=== PATIENT | female | born 2000 | race Caucasian/White ===

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

== ENCOUNTER 2023-04-03 00:08 | Inpatient (IN) | payer BC, OTHER ==
[~2023-04-03 00:08] MED LIST changes: +COLESTIPOL HCL1 GM PO; +SUCRALFATE1 GM PO
[2023-04-03 00:45] LABS: HEMATOCRIT 31.1 % (35.0-50.0); HEMOGLOBIN 10.6 g/dL (12.0-18.0); MCH 30.3 (27-36); MCV 89.1 fl (81-99); RBC 3.49 M/ul (4.3-5.7); RDW 13.2 (10.5-15.0)
[2023-04-03 01:05] LABS: AMPHETAMINES, URINE NEGATIVE (NEGATIVE); BARBITURATES, URINE NEGATIVE (NEGATIVE); BENZODIAZEPINE, URINE NEGATIVE (NEGATIVE); BUPRENORPHINE, URINE NEGATIVE (NEGATIVE); CANNABINOID, URINE NEGATIVE (NEGATIVE); COCAINE, URINE NEGATIVE (NEGATIVE); ECSTASY, URINE NEGATIVE (NEGATIVE); FENTANYL, URINE NEGATIVE (NEGATIVE); METHADONE, URINE NEGATIVE (NEGATIVE); OPIATES, URINE NEGATIVE (NEGATIVE); OXYCODONE, URINE NEGATIVE (NEGATIVE); PHENCYCLIDINE, URINE NEGATIVE (NEGATIVE)
[2023-04-03 01:21] LABS: INFLUENZA B NAA NEGATIVE (NEGATIVE); RESPIRATORY SYNCYTIAL VIR NAA NEGATIVE (NEGATIVE)
[2023-04-03 01:24] LABS: ABO AB; ANTIBODY SCREEN NEGATIVE; RH POSITIVE
[2023-04-03 02:25] VITALS: BP 125/58
--- NOTE | 2023-04-03 10:42 | PR ---
[facility] [address] [facility] [place], [place] [address] Signed Progress Notes IP Datetime Report Generated by CPN: 04/03/2023 10:42 PROGRESS NOTES: [id number] Impression: Normal Progression of Labor Procedures: Artificial ROM; Sterile Vag Exam Plan: Continue Present Management VITAL SIGNS: [id number] Vital Signs: Reviewed; Within Normal Limits EXAM: [id number] Dilatation: 2.0 Effacement: 60 Station: -2 Contractions: q 1 to 3 min MEMBRANES: [id number] ROM Note: Amnisure test to lab Comments: Progressing but still comfortable. Will continue. FETUS A: [id number] FHR Baseline: 145 Variability: Moderate 6-25bpm Accelerations: 15X15 Decelerations: Variable FHR Category: Category II Presentation: Vertex Comments on Fetus A: accel with exam FETUS B: [id number] Signing Physician: Reema Jain MD Copies: ~ *Electronically Signed* 04/03/23 1042 REEMA JAIN MD PATIENT NAME: BERNABE MANZO PROGRESS NOTE DATE OF : [birth year] PHYSICIAN: REEMA JAIN MD RPT #: [id number] REPORT IS CONFIDENTIAL AND NOT TO BE RELEASED WITHOUT AUTHORIZATION
--- NOTE | 2023-04-03 18:43 | PR ---
[facility] [address] [place], [place] [address] Signed Progress Notes IP Datetime Report Generated by CPN: 04/03/2023 18:42 PROGRESS NOTES: [id number] Impression: Normal Progression of Labor; Non-reassuring Heart Rate Procedures: Sterile Vag Exam Plan: Tocolysis VITAL SIGNS: [id number] Vital Signs: Reviewed; Within Normal Limits EXAM: [id number] Dilatation: 8.0 Effacement: 80 Station: -2 Contractions: q 2 to 3 min MEMBRANES: [id number] ROM Note: Amnisure test to lab Comments: LE--Good progress but status not reassuring with the decrease in variability and recurrent decels. status improved with IV ephedrine as BP was borderline and also rec'd subq terb. Currently, status reassuring. Will continue close observation. FETUS A: [id number] FHR Baseline: 145 Variability: Minimal - >Undetectable to <=5bpm Accelerations: 15X15 Decelerations: Late; Variable; Prolonged FHR Category: Category II Presentation: Vertex Comments on Fetus A: accel with exam FETUS B: [id number] Signing Physician: Reema Jain MD Copies: ~ *Electronically Signed* 04/03/23 184 REEMA JAIN MD PATIENT NAME: BERNABE MANZO PROGRESS NOTE DATE OF : [birth year] PHYSICIAN: REEMA JAIN MD RPT #: [id number] REPORT IS CONFIDENTIAL AND NOT TO BE RELEASED WITHOUT AUTHORIZATION
--- NOTE | 2023-04-03 20:29 | PR ---
[facility] [address] [facility] [place] [address] Signed Progress Notes IP Datetime Report Generated by CPKailey: 04/03/2023 20:29 PROGRESS NOTES: [id number] Impression: Normal Progression of Labor; Reassuring Heart Rate Procedures: Sterile Vag Exam Plan: Continue Present Management VITAL SIGNS: [id number] Vital Signs: Reviewed; Within Normal Limits EXAM: [id number] Dilatation: 9.0 Effacement: 80 Station: -1 Contractions: q 4 to 5 min MEMBRANES: [id number] ROM Note: Amnisure test to lab Comments: status has been very good since the episode of decels. Making progress. Will continue. FETUS A: [id number] FHR Baseline: 145 Variability: Moderate 6-25bpm Accelerations: 15X15 Decelerations: None FHR Category: Category I Presentation: Vertex Comments on Fetus A: accel with exam FETUS B: [id number] Signing Physician: Reema Jain MD Copies: ~ *Electronically Signed* 04/03/232028 REEMA JAIN MD PATIENT NAME: BERNABE MANZO PROGRESS NOTE DATE OF : [birth year] PHYSICIAN: REEMA JAIN MD RPT #: [id number] REPORT IS CONFIDENTIAL AND NOT TO BE RELEASED WITHOUT AUTHORIZATION
[2023-04-04 05:27] LABS: HEMATOCRIT 31.1 % (35.0-50.0); HEMOGLOBIN 10.6 g/dL (12.0-18.0); MCH 30.2 (27-36); MCHC 33.9 g/dl (30-36); PLATELET COUNT 246 K/uL (140-440); RDW 13.4 (10.5-15.0)
[2023-04-04 05:39] LABS: BANDS, MANUAL DIFF 25; LYMPHOCYTES, MANUAL DIFF 11; MONOCYTES, MANUAL DIFF 1; NEUTROPHILS, MANUAL DIFF 63
--- NOTE | 2023-04-04 08:19 | PR ---
[facility] [place] [facility] [address] [place] [address] Signed PP Progress Notes Datetime Report Generated by CPN: 04/04/2023 08:19 SUBJECTIVE: [id number] Pain: Within Normal Limits Vital Signs: [id number] Vital Signs: Reviewed; Within Normal Limits Cardiovascular: Not Done Respiratory: Not Done Abdomen/Uterus: Abnormal Lochia: Normal Vulva/Perineum: Not Done Breasts: Not Done CVA Tenderness: Not Done Extremities: Normal Incision: Not Applicable Progress: Not Applicable Exam Comments: Fundus firm, NT @ U-1. H/H 10..1, WBC 23.5 S63/B25, plat 246k IMPRESSION/PLAN/PROCEDURES: [id number] Impression: Normal Progression Other Impression: elevated WBC with lg # bands Progress Notes: Doing well. Her WBCs are quite high which is common with labor but she does have a large # of bands. There are no other signs of infx currently but will repeat lab in am. Signing Physician: Reema Jain MD Copies: ~ *Electronically Signed* 04/04/23 08 REEAM JAIN MD PATIENT NAME: ALDRICH COLLIER,BERNABE EDUARDO PROGRESS NOTE DATE OF : [birth year] PHYSICIAN: REEMA JAIN MD RPT #: [id number] REPORT IS CONFIDENTIAL AND NOT TO BE RELEASED WITHOUT AUTHORIZATION
--- NOTE | 2023-04-04 11:48 | NUR ---
EXERCISED MINISTRY OF [facility] FAM[facility] TALKED OF LIFE EXPERIENCES. ALL DENIED NEEDS. CONSENTED TO PRAYER. PRAYED FOR GOOD BEGINNINGS AND ONGOING BLESSING.
[2023-04-05 05:34] LABS: BASOPHILS 0.5 % (0-2); EOSINOPHILS 1.4 % (0-6); HEMATOCRIT 31.4 % (35.0-50.0); HEMOGLOBIN 10.4 g/dL (12.0-18.0); LYMPHOCYTES 19.6 % (24-44); MCH 30.2 (27-36); MCHC 33.1 g/dl (30-36); MCV 91.2 fl (81-99); MONOCYTES 4.7 % (0-12); NEUTROPHILS 73.8 % (39-80); PLATELET COUNT 243 K/uL (140-440); RBC 3.45 M/ul (4.3-5.7); RDW 13.8 (10.5-15.0)
--- NOTE | 2023-04-05 07:40 | PR ---
[facility] [address] [facility] [place] [address] Signed PP Progress Notes Datetime Report Generated by CPN: 04/05/2023 07:39 SUBJECTIVE: [id number] Pain: Within Normal Limits Vital Signs: [id number] Vital Signs: Reviewed; Within Normal Limits Cardiovascular: Not Done Respiratory: Not Done Abdomen/Uterus: Abnormal Lochia: Normal Vulva/Perineum: Not Done Breasts: Not Done CVA Tenderness: Not Done Extremities: Normal Incision: Not Applicable Progress: Not Applicable Exam Comments: Fundus firm, NT @ U-1. H/H 10.4/31.4, WBC 16.9 S73.8 IMPRESSION/PLAN/PROCEDURES: [id number] Impression: Normal Progression Other Impression: improved white count Plan: Discharge Procedures: None Progress Notes: Doing well. She is ready for discharge. Signing Physician: Reema Jain MD Copies: ~ *Electronically Signed* 04/05/23 0739 REEMA JAIN MD PATIENT NAME: BERNABE MANZO EDUARDO PROGRESS NOTE DATE OF : [birth year] PHYSICIAN: REEMA JAIN MD RPT #: [id number] REPORT IS CONFIDENTIAL AND NOT TO BE RELEASED WITHOUT AUTHORIZATION
== END 2023-04-05 11:00 | disposition home or self-care (01) | DRG 807 ==
LOC: FBC 00:08
PROVIDERS: ADMIT Obstetrics & Gynecology; ATTEND Obstetrics & Gynecology
PROC: 10E0XZZ Delivery of Products of Conception, External Approach (ICD-10-PCS; principal; 2023-04-03)
PROC: 0KQM0ZZ Repair Perineum Muscle, Open Approach (ICD-10-PCS; 2023-04-03)
PROC: 3E0R3BZ Introduction of Anesthetic Agent into Spinal Canal, Percutaneous Approach (ICD-10-PCS; 2023-04-03)
PROC: 00HU33Z Insertion of Infusion Device into Spinal Canal, Percutaneous Approach (ICD-10-PCS; 2023-04-03)
PROC: 10907ZC Drainage of Amniotic Fluid, Therapeutic from Products of Conception, Via Natural or Artificial Opening (ICD-10-PCS; 2023-04-03)
DX: O76 Abnormality in fetal heart rate and rhythm complicating labor and delivery (principal); Z37.0 Single live birth; Z3A.39 39 weeks gestation of pregnancy; O70.1 Second degree perineal laceration during delivery; O77.0 Labor and delivery complicated by meconium in amniotic fluid; Z11.52 Encounter for screening for COVID-19
CPT/HCPCS: 01960; 36415; 80307; 85007; 85025; 85027; 86850; 86900; 86901; 87502; A9270; J2001; J2405; J2590; J2795; J3105; J7121; U0002